=== PATIENT | female | born 1980 | race Two or more races ===

== ENCOUNTER 2017-04-24 09:40 | Emergency (ER) | payer SELFPAY ==
--- NOTE | 2017-04-24 09:55 | ER Document Report ---
ED Medical Screen (RME) - General Chief Complaint: Abdominal Pain Stated Complaint: ABDOMINAL PAIN Time Seen by Provider: 04/24/17 09:53 Notes: Patient presents complaining of cramping in arms and legs. Patient states this started 10 days ago when she started taking pre-oscar vitamins. She states that she is currently but does not know how far along she is. She states no ultrasound has been done. She states she has not had a menstrual cycle since 2014. She states she has no current medical problems. Patient states her only care has been 1 visit to the [facility]. She states she has never had any surgeries except for 1 section. Patient denies any vaginal bleeding. No problems with urine no problems with bowel movements. She denies any vomiting. She states she does have occasional abdominal cramping but does not have any cramping in her abdomen currently. TRAVEL OUTSIDE OF THE [place] IN LAST 30 DAYS: No - Related Data Allergies/Adverse Reactions: No Known Allergies Allergy (Verified 04/24/17 09:50) Past Medical History Renal/ Medical History: Denies: Hx Peritoneal Dialysis Physical Exam - Vital signs Vitals: Temp Pulse Resp BP Pulse Ox 98.7 F 102 H 18 112/65 99 04/24/17 09:45 04/24/17 09:45 04/24/17 09:45 04/24/17 09:45 04/24/17 09:45 Course - Vital Signs Vital signs: Temp Pulse Resp BP Pulse Ox 98.7 F 102 H 18 112/65 99 04/24/17 09:45 04/24/17 09:45 04/24/17 09:45 04/24/17 09:45 04/24/17 09:45
[2017-04-24 10:20] LABS: ABSOLUTE EOSINOPHILS # (AUTO) 0.1 10^3/uL (0.0-0.6); ABSOLUTE LYMPHOCYTES (AUTO) 1.9 10^3/uL (0.5-4.7); ABSOLUTE MONOCYTES (AUTO) 0.6 10^3/uL (0.1-1.4); BASOPHILS % (AUTO) 0.3 % (0-2); HEMATOCRIT 35.7 % (36.0-47.0); HEMOGLOBIN 11.7 g/dL (12.0-15.5); HGB HCT DIFFERENCE -0.6; LYMPHOCYTES % (AUTO) 18.2 % (13-45); MEAN CORPUSCULAR HGB CONC 32.8 g/dL (32.0-36.0); MEAN CORPUSCULAR VOLUME 82 fl (80-97); MONOCYTES % (AUTO) 5.8 % (3-13); RED BLOOD COUNT 4.35 10^6/uL (3.72-5.28); RED CELL DISTRIBUTION WIDTH 13.9 % (11.5-14.0); SEGMENTED NEUTROPHILS % (AUTO) 74.7 % (42-78); WHITE BLOOD COUNT 10.7 10^3/uL (4.0-10.5)
[2017-04-24 10:27] LABS: APPEARANCE,URINE SLIGHTLY-CLOUDY; BILIRUBIN,URINE NEGATIVE (NEGATIVE); GLUCOSE, URINE NEGATIVE (NEGATIVE); KETONES,URINE NEGATIVE (NEGATIVE); LEUKOCYTE ESTERASE,URINE TRACE (NEGATIVE); NITRITE,URINE NEGATIVE (NEGATIVE); PROTEIN,URINE NEGATIVE (NEGATIVE); URINE SPECIFIC GRAVITY 1.011; UROBILINOGEN,URINE NEGATIVE mg/dL (<2.0)
[2017-04-24 10:38] LABS: ALANINE AMINOTRANSFERASE 19 U/L (9-52); ALBUMIN 3.6 g/dL (3.5-5.0); ALKALINE PHOSPHATASE 89 U/L (38-126); ANION GAP 8 (5-19); ASPARTATE AMINO TRANSFERASE 15 U/L (14-36); BILIRUBIN,DIRECT 0.2 mg/dL (0.0-0.4); BILIRUBIN,TOTAL 0.4 mg/dL (0.2-1.3); BLOOD UREA NITROGEN 6 mg/dL (7-20); CALCIUM 8.7 mg/dL (8.4-10.2); CARBON DIOXIDE 26 mmol/L (22-30); CHLORIDE 104 mmol/L (98-107); CREATININE RESULT 0.51 mg/dL (0.52-1.25); GLUCOSE 83 mg/dL (75-110); POTASSIUM 4.2 mmol/L (3.6-5.0); SODIUM 138.2 mmol/L (137-145); TOTAL PROTEIN 6.6 g/dL (6.3-8.2)
--- NOTE | 2017-04-24 10:47 | ER Document Report ---
ED GI/ - General Chief Complaint: Abdominal Pain Stated Complaint: ABDOMINAL PAIN Time Seen by Provider: 04/24/17 09:53 Notes: Patient is here to be seen for pain that she says is in her left lower quadrant. Patient speaks only Luxembourgish and we are using Haleigh as land surveying manager. Patient tells me and the land surveying manager that her pain has been present for about 3 days, since Friday, but in triage, she told them 10 days. She has been on pills as her only medication and feels that her abdominal pain is related to those pills so she has not taken them since Friday. Pain comes and goes and is somewhat better than it was 3 or 4 days ago. Patient is possibly . She has been to the [facility] and had a positive test on April 14. She has not had vaginal bleeding prior to that since 2014 and were not certain why she has not had a period during these 2 years. She has not had any other associated symptoms. Specifically, denies nausea or vomiting or diarrhea, any UTI symptoms, fever. TRAVEL OUTSIDE OF THE [place] IN LAST 30 DAYS: No - Related Data Allergies/Adverse Reactions: No Known Allergies Allergy (Verified 04/24/17 09:50) Past Medical History - Social History Smoking Status: Never Smoker Chew tobacco use (# tins/day): No Frequency of alcohol use: None Drug Abuse: None Family History: Reviewed & Not Pertinent Patient has suicidal ideation: No Patient has homicidal ideation: No Past Surgical History: Reports: Hx Section Review of Systems - Review of Systems Notes: REVIEW OF SYSTEMS: CONSTITUTIONAL : Denies fever. EENT: Denies eye, ear, nose or mouth or throat pain or other symptoms. CARDIOVASCULAR: Denies chest pain. RESPIRATORY: Denies cough, chest congestion, or shortness of breath. GASTROINTESTINAL: See HPI regarding pain. Denies nausea, vomiting, or diarrhea. GENITOURINARY: Denies difficulty or painful urinating, urinary frequency, blood in urine. MUSCULOSKELETAL: Denies back or neck pain. Denies joint pain or swelling. SKIN: Denies rash or skin lesions. NEUROLOGICAL: Denies LOC or altered mental status. Denies headache. Denies sensory loss or motor deficits. ALL OTHER SYSTEMS REVIEWED AND NEGATIVE. Physical Exam - Vital signs Vitals: Temp Pulse Resp BP Pulse Ox 98.7 F 102 H 18 112/65 99 04/24/17 09:45 04/24/17 09:45 04/24/17 09:45 04/24/17 09:45 04/24/17 09:45 Interpretation: Normal - Notes Notes: PHYSICAL EXAMINATION: GENERAL: Well-appearing, in no acute distress. HEAD: Atraumatic, normocephalic. NECK: Normal range of motion, supple. LUNGS: Breath sounds clear and equal bilaterally. HEART: Regular rate and rhythm without murmurs. ABDOMEN: Soft, tender in the left lower quadrant, but no guarding and no rebound. No masses felt. No heartbeat noted. No tenderness in the right abdomen, i.e. right lower quadrant. BACK: No tenderness throughout entire back. No left flank pain. EXTREMITIES: Normal range of motion without pain. SKIN: Warm, dry, no rashes. Course - Re-evaluation Re-evalutation: 04/24/17 12:03 Patient's lab results were unremarkable. Ultrasound shows a 31 week gestation . Patient will be referred to L&D for further evaluation. - Vital Signs Vital signs: Temp Pulse Resp BP Pulse Ox 98.7 F 102 H 18 112/65 99 04/24/17 09:45 04/24/17 09:45 04/24/17 09:45 04/24/17 09:45 04/24/17 09:45 - Laboratory Result Diagrams: 04/24/17 10:05 04/24/17 10:05 Laboratory results interpreted by me: 04/24/17 04/24/17 04/24/17 10:05 10:05 10:05 WBC 10.7 H Hgb 11.7 L Hct 35.7 L BUN 6 L Creatinine 0.51 L Serum HCG, Qual POSITIVE H Ur Leukocyte Esterase 04/24/17 10:05 WBC Hgb Hct BUN Creatinine Serum HCG, Qual Ur Leukocyte Esterase TRACE H 04/24/17 12:02 Lab studies are all essentially normal except for a positive test. - Diagnostic Test Radiology reviewed: Image reviewed, Reports reviewed - Ultrasound shows a 31 week living, normal . Discharge - Discharge Clinical Impression: LLQ abdominal pain Qualifiers: Weeks of gestation: 31 weeks Qualified Code(s): Z3A.31 - 31 weeks gestation of Condition: Stable Disposition: HOME, SELF-CARE Additional Instructions: You are . care is best started as early in as possible. If you're unsure about continuing this , you should discuss this with your physician or with pediatrics physician at [facility]. You should take only medications approved by your physician. Acetaminophen can safely be taken for minor pains. As a rule, medication for chronic conditions such as asthma or seizures can safely be continued. You should discuss with the physician every medicine you take. Any regular exercise program can be continued. Talk to your physician, however, before engaging in competitive or demanding sports. Alcohol, smoking, and "street drugs" are dangerous to your baby. Cocaine is especially dangerous. Don't use any illicit drugs! FOLLOW-UP CARE: If you have been referred to a physician for follow-up care, call the physician s office for an appointment as you were instructed or within the next two days. If you experience worsening or a significant change in your symptoms, notify the physician immediately or return to the Emergency Department at any time for re-evaluation. You are being discharged to be evaluated further at L&D Print Language: Luxembourgish
--- NOTE | 2017-04-24 12:09 | RADIOLOGY REPORT (SQ) ---
EXAM DESCRIPTION: U/S OB 14+ TRNABD 1GES W/O DOP COMPLETED DATE/TIME: 04/24/2017 11:50 am REASON FOR STUDY: preg, unknown how far along. LLQ pain COMPARISON: None. TECHNIQUE: Static and Dynamic grayscale imaging performed of gravid uterus using transabdominal appr oach. Additional selected color Doppler and spectral images recorded. All stored on PACS. LIMITATIONS: None. FINDINGS: EGA: 31 weeks 2 days SOSA: 06/24/2017 EFW: 1553 +/- 230 g PERCENTILE: Not calculated RACH: Largest pocket 7.1 cm PLACENTA: Anterior PRESENTATION: Breech ANATOMY: HEART RATE: 143 beats per minute. FOUR CHAMBER HEART: Visualized. THREE VESSEL CORD: Yes. CORD INSERTION: Visualized. KIDNEYS AND BLADDER: Visualized. Appear normal. STOMACH: Visualized. Appears normal. SPINE: Normal as visualized. BRAIN AND LATERAL VENTRICLES: Visualized. Appear normal. OTHER: No other significant finding. MATERNAL ADNEXA: Maternal ovaries not visualized. CERVICAL LENGTH: 2.7 cm Closed. OTHER: No other significant finding. IMPRESSION: LIVING INTRAUTERINE . ESTIMATED GESTATIONAL AGE 31 weeks 2 days NO VISUALIZED ANOMALIES. Trimester of : Third trimester - 28 weeks to delivery. TECHNICAL DOCUMENTATION: JOB ID: [id number] [employer]- All Rights Reserved
[2017-04-24 12:35] VITALS: BP 117/71
== END 2017-04-24 12:35 | disposition home or self-care (01) ==
LOC: ER 09:40
DX: O26.893 Other specified pregnancy related conditions, third trimester (principal); R10.32 Left lower quadrant pain; Z3A.31 31 weeks gestation of pregnancy
CPT/HCPCS: 36415; 76805; 80053; 81001; 84702; 84703; 85025; 99284

== ENCOUNTER 2017-04-24 12:13 | Outpatient (CLI) | payer SELFPAY ==
[2017-04-24 13:19] LABS: APPEARANCE,URINE CLEAR; BILIRUBIN,URINE NEGATIVE (NEGATIVE); GLUCOSE, URINE NEGATIVE (NEGATIVE); KETONES,URINE NEGATIVE (NEGATIVE); LEUKOCYTE ESTERASE,URINE NEGATIVE (NEGATIVE); NITRITE,URINE NEGATIVE (NEGATIVE); PROTEIN,URINE NEGATIVE (NEGATIVE); URINE SPECIFIC GRAVITY 1.014; UROBILINOGEN,URINE NEGATIVE mg/dL (<2.0)
[2017-04-24 13:34] LABS: URINE BARBITURATES SCREEN NEGATIVE; URINE METHADONE SCREEN NEGATIVE; URINE OPIATES LOW NEGATIVE; URINE PHENCYCLIDINE SCREEN NEGATIVE
--- NOTE | 2017-04-24 13:49 | Non Stress Test Report ---
Non Stress Test Datetime Report Generated by CPN: 04/24/2017 13:49 INDICATION Indication for Study: Other Indication for Study (NST) Other: came for prescription of new vitamins VITAL SIGNS Temperature - NST: 98.5 Pulse - NST: 90 RESP - NST: 18 NBPSYS NST: 100 NBPDIA NST: 64 MONITORING Monitor Explained: Monitor Explained; Test Explained Time on Monitor: 04/24/2017 12:52 Time off Monitor: 04/24/2017 13:27 NST Duration: 35 NST INTERVENTIONS NST Interventions: Reposition Patient Physician Notified NST: Dr. Meek BABY A: [id number] BABY A Movement : Present Contraction Frequency : x1 FHR Baseline : 125 Accelerations : 15X15 Decelerations : None Variability : Moderate 6-25bpm NST Review: Meets Criteria for Reactive NST NST Review and Verified By : dbellavance rnc NST Results: Reactive NST REPORT Report Trigger: Send Report
== END 2017-04-24 13:35 | disposition home or self-care (01) ==
LOC: LC 12:13
PROVIDERS: ATTEND Student in an Organized Health Care Education/Training Program
DX: Z34.80 Encounter for supervision of other normal pregnancy, unspecified trimester (principal)
CPT/HCPCS: 80307; 81001

== ENCOUNTER 2017-06-29 00:46 | Inpatient (IN) | payer SELFPAY ==
[2017-06-29] MEDS ORDERED: MISOPROSTOL 0.2 MG TABLET ONE ×2 (01:10→02:50)
[2017-06-29] MEDS ORDERED: LIDOCAINE 1% INJ-PF (10 MG/ML) 30 ML SDV ONE (01:10)
[2017-06-29] MEDS ORDERED: OXYTOCIN/NORMAL SALINE 20 UNIT/1,000 ML RTUINJ ONE ×2 (01:10→01:42)
[2017-06-29] MEDS ORDERED: CEFAZOLIN 2 GM/D5W RTU 2 GM/50 ML RTUPB IV ONE (01:24)
[2017-06-29] MEDS ORDERED: CITRIC ACID/SODIUM CITRATE ORAL SOLN 15 ML UDCUP ONE (01:24)
[2017-06-29 01:39] LABS: ABSOLUTE EOSINOPHILS # (AUTO) 0.1 10^3/uL (0.0-0.6); ABSOLUTE MONOCYTES (AUTO) 0.6 10^3/uL (0.1-1.4); ABSOLUTE NEUT (AUTO) 8.7 10^3/uL (1.7-8.2); BASOPHILS % (AUTO) 0.2 % (0-2); EOSINOPHILS % (AUTO) 0.8 % (0-6); HEMATOCRIT 34.8 % (36.0-47.0); HEMOGLOBIN 11.6 g/dL (12.0-15.5); LYMPHOCYTES % (AUTO) 17.7 % (13-45); MEAN CORPUSCULAR HEMOGLOBIN 27.5 pg (27.0-33.4); MEAN CORPUSCULAR HGB CONC 33.4 g/dL (32.0-36.0); MEAN CORPUSCULAR VOLUME 82 fl (80-97); MONOCYTES % (AUTO) 5.4 % (3-13); RED BLOOD COUNT 4.23 10^6/uL (3.72-5.28); RED CELL DISTRIBUTION WIDTH 13.8 % (11.5-14.0); SEGMENTED NEUTROPHILS % (AUTO) 75.9 % (42-78); WHITE BLOOD COUNT 11.4 10^3/uL (4.0-10.5)
[2017-06-29] MEDS ORDERED: OXYTOCIN 10 UNIT/ML VIAL ONE (01:42)
[2017-06-29] MEDS ORDERED: ONDANSETRON HCL INJ/PF 4 MG/2 ML SDV ONE (01:42)
[2017-06-29] MEDS ORDERED: PROPOFOL INJ 200 MG/20 ML VIAL IV ONE (01:42)
[2017-06-29] MEDS ORDERED: PHENYLEPHRINE HCL INJ/PF 10 MG/1 ML SDV ONE (01:42)
[2017-06-29] MEDS ORDERED: MIDAZOLAM 2 MG/2 ML INJ ONE (01:42)
[2017-06-29] MEDS ORDERED: FENTANYL CITRATE INJ/PF 250 MCG/5 ML AMPULE ONE (01:42)
[2017-06-29] MEDS ORDERED: ACETAMINOPHEN 100 ML IV ONE (02:28)
[2017-06-29] MEDS ORDERED: MORPHINE SULFATE 10 MG/ML INJ ONE (02:46)
[2017-06-29] MEDS ORDERED: METHYLERGONOVINE MALEATE INJ/PF 0.2 MG/1 ML AMPULE ONE (02:51)
--- NOTE | 2017-06-29 04:18 | OPERATIVE REPORT E ---
Operative Report NAME: FRANK WOLF : 1980 AGE: 37Y DATE OF SURGERY: 06/29/2017 ROOM: LR200 PREOPERATIVE DIAGNOSIS: Intrauterine at 40+ weeks with history of , presenting in labor. POSTOPERATIVE DIAGNOSIS: Intrauterine at 40+ weeks with history of , presenting in labor. OPERATION PERFORMED: Repeat low transverse cervical section. SURGEON: LEROY PRUITT M.D. ANESTHESIA: General after failed attempted at spinal. ESTIMATED BLOOD LOSS: 600 mL. SPECIMEN TO PATHOLOGY: Placenta. FINDINGS: Mcneal male infant in breech presentation. 9 and 9. Short umbilical cord was noted. Weight 7 pounds 1 ounce or 3190 grams. Normal uterus, tubes and ovaries. Placenta was sent for pathology. DESCRIPTION OF PROCEDURE: After discussing risks, benefits, and alternatives of the procedure and obtaining informed consent, the patient was taken to the operating room where attempt spinal anesthesia was made. The patient is a known schizophrenic and she was unable to comply with positioning and holding still. She then underwent general anesthesia. She was then positioned in the dorsal supine position with a leftward tilt and prepped and draped in the standard fashion. General anesthesia was achieved. A Pfannenstiel skin incision was made and the abdomen was entered in layers in the standard fashion. A bladder flap was created with a sharp dissection. A low transverse cervical incision was made with the C-knife. The surgeon's hand was entered into the hysterotomy incision and breech elevated out the pelvis and delivered. It was delivered to the level of the knees. Each knee was flexed and delivered. The infant was delivered to the level of the upper chest. Each arm was swept over the anterior chest wall and delivered. The head was delivered by keeping it in flexion. The nasopharynx and oropharynx were bulb suctioned. The cord was clamped and cut. was handed to pediatrics who were present. Placenta was manually extracted. The uterus was exteriorized and cleared of all clots and debris. The hysterotomy incision was closed in 0 Monocryl in a running locked fashion. An area of oozing was oversewn midway across the uterus. Adequate hemostasis was then observed. Uterus, tubes and ovaries returned to the peritoneal cavity. The cavity was irrigated and hemostasis again assured. The peritoneum was closed with 2-0 Vicryl in a pursestring manner. The subfascial spaces were inspected and area of bleeding on the muscle in the pyramidalis region was noted. Hemostasis was obtained with 2-0 Vicryl. The rectus muscles were loosely reapproximated with 2-0 Vicryl. An area of oozing was noted along the left inferior epigastric and hemostasis achieved again with cautery. The fascia was closed with 1-0 Vicryl. The subcutaneous tissues were irrigated and hemostasis achieved with cautery. The skin was closed in a subcuticular fashion with 3-0 Vicryl. An OpSite dressing was applied. Cytotec was placed, 1000 mcg per rectum as it was felt that the patient would be unable to comply with fundal rubs postoperatively. She was extubated and taken to recovery in stable condition. All sponge, needle, lap, and instrument counts were correct x2. DICTATING PHYSICIAN: LEROY PRUITT M.D. [id number] PHY#: [id number] ID: [id number] JOB#: [id number] ACCT: [id number] cc:LEROY PRUITT M.D. >
[2017-06-29 04:41] LABS: APPEARANCE,URINE SLIGHTLY-CLOUDY; BILIRUBIN,URINE NEGATIVE (NEGATIVE); GLUCOSE, URINE NEGATIVE (NEGATIVE); KETONES,URINE NEGATIVE (NEGATIVE); LEUKOCYTE ESTERASE,URINE NEGATIVE (NEGATIVE); NITRITE,URINE NEGATIVE (NEGATIVE); PROTEIN,URINE 30 mg/dL (NEGATIVE); UROBILINOGEN,URINE NEGATIVE mg/dL (<2.0)
[2017-06-29 04:52] LABS: URINE BARBITURATES SCREEN NEGATIVE; URINE METHADONE SCREEN NEGATIVE; URINE PHENCYCLIDINE SCREEN NEGATIVE
[2017-06-29 04:53] LABS: ADD HIVPANEL? NO; HIV (1 AND 2) ANTIBODY NEGATIVE (NEGATIVE)
[2017-06-29 05:04] LABS: URINE OPIATES LOW UNCONFIRMED POSITIVE
--- NOTE | 2017-06-29 05:32 | Delivery Summary ---
Del Sum A-C Datetime Report Generated by CPN: 06/29/2017 05:32 DELIVERY PERSONNEL DELIVERY PERSONNEL: [id number] Delivery Doctor:: Hafsa Barry MD Anesthesiologist:: Will Soliz MD LOADER HELPER SORTING YARD:: Leander Smith CRNA Labor and Delivery Nurse:: Myesha Pineda RN Neonatal Nurse Practitioner:: ASHLEY Salinas Nursery Nurse:: Mary Martinez RN Aboriginal Education Teacher/BALE SEWER: Divine Marcelinor, POLICY DIRECTOR Aboriginal Education Teacher/BALE SEWER: Nicole Ramirez, ST MATERNAL INFORMATION Delivery Anesthesia: General Medications After Delivery: Pitocin Drip 20 Units/1000ml NSS Maternal Complications: Other Other Maternal Complications: Limited/late PNC LABOR SUMMARY EDC: 06/24/2017 00:00 No. Babies in Womb: 1 Attempted: No Labor Anesthesia: None LABOR INFORMATION Reason for Induction: Not Applicable Onset of Labor: 06/29/2017 00:53 Oxytocin: N/A Group B Beta Strep: Unknown Antibiotics # of Doses: 1 Antibiotics Time of Last Dose: 014 Name of Antibiotic Given: Ancef Steroids Given: None Reason Steroids Not Administered: Not Applicable MEMBRANES Membranes Rupture Method: Artificial Rupture of Membranes: 06/29/2017 01:15 Length of Rupture (hr): 1.10 Amniotic Fluid Color: Clear Amniotic Fluid Amount: Small Amniotic Fluid Odor: Normal STAGES OF LABOR Stage 3 hr: 0 Stage 3 min: 1 Total Time in Labor hr: 1 Total Time in Labor min: 29 VAGINAL DELIVERY Sponge Count Correct: N/A CSECTION DELIVERY Primary Indication: Repeat Elective Secondary Indication: Breech Presentation CSection Urgency: Non-Scheduled CSection Incidence: Repeat Labor: Labor Elective: Nonelective CSection Incision: Lower Uterine Transverse BABY A INFORMATION Delivery Date/Time: 06/29/2017 02:21 Method of Delivery: Born in Route : No : N/A Forceps: N/A Vacuum Extraction: N/A Shoulder Dystocia : No PRESENTATION/POSITION BABY A Presentation: Breech Cephalic Presentation: N/A Breech Presentation: Manny PLACENTA INFORMATION BABY A Placenta Delivery Time : 06/29/2017 02:22 Placenta Method of Delivery: Manual Removal Placenta Status: Delivered INFANT INFORMATION BABY A Gestational Age at Delivery: 40.5 Gestational Status: Full Term- 39- 40.6 Weeks Infant Outcome : Liveborn Infant Condition : Stable Infant Sex: Male IDENTIFICATION BABY A Infant Verification Date/Time: 06/29/2017 02:23 ID Band Number: [id number] Mother's Name Verified: Yes RN Verifying Infant: B. Ring RN Additional Verifying Personnel: R. Ertel BALE SEWER WEIGHT/LENGTH BABY A Birthweight (gm): 3190 Infant Weight (lb): 7 Infant Weight (oz): 1 Length (in): 19.00 Infant Length (cm): 48.26 CORD INFORMATION BABY A No. Cord Vessels: 3 Nuchal Cord : N/A Cord Blood Taken: Yes-For Eval (Mom's Blood Type - or O+) Suction: Mouth; Nose ASSESSMENT BABY A Infant Complications: Decreased Variability Physical Findings at Delivery: Within Normal Limits Physical Findings- Other: See full nursery assessment Infant Respirations: Appears Normal Skin to Skin: No Marketing Area Manager/ALS Called : Yes Infant Care By: Paresh Martinez RN Transferred To: [facility] BABY B INFORMATION : N/A
[2017-06-29] MEDS ORDERED: PROMETHAZINE HCL INJ 25 MG/1 ML VIAL IV PRN (05:39)
[2017-06-29] MEDS ORDERED: OXYTOCIN/NORMAL SALINE 20 UNIT/1,000 ML RTUINJ IV PRN (05:39)
[2017-06-29] MEDS ORDERED: SIMETHICONE 80 MG TAB.CHEW PO PRN (05:39)
[2017-06-29] MEDS ORDERED: ACETAMINOPHEN 325 MG TABLET PO PRN (05:39)
[2017-06-29] MEDS ORDERED: MEASLES,MUMPS&RUBELLA VACC/PF 0.5 ML VIAL SUBCUT PRN (05:39)
[2017-06-29] MEDS ORDERED: OXYCODONE-ACETAMINOPHEN 5-325 MG TABLET PO PRN (05:39)
[2017-06-29] MEDS ORDERED: DIPH/PERTUSS(ACELL)/TETANUS VAC/PF 0.5 ML SYR (>=10YO) IM PRN (05:39)
[2017-06-29] MEDS ORDERED: RINGERS SOLUTION,LACTATED 1,000 ML IV PRN (05:39)
[2017-06-29] MEDS ORDERED: HYDROMORPHONE HCL INJ/PF 2 MG/ML AMPULE IV PRN (05:39)
--- NOTE | 2017-06-29 06:13 | Admission Physical ---
Datetime Report Generated by CPN: 06/29/2017 06:13 CURRENT ADMISSION Chief Complaint: Uterine Contractions; Suspected Ruptured Membranes Admit Plan: Admit to Unit; Initiate Section Protocol ALLERGIES Medication Allergies: No Medication Allergies: No Known Allergies (06/29/2017) Medication Allergies: No Known Allergies (04/24/2017) Latex: No Latex Allergies Food Allergies: N/A Environmental Allergies: N/A OBSTETRICAL HISTORY EDC: 06/24/2017 00:00 : 2 Para: 1 Term: 0 : 0 SAB: 0 IAB: 0 Ectopic: 0 Livin Cesareans: 1 VBACs: 0 Multiple Births: 0 Gestational Diabetes: No Rh Sensitization: No Incompetent Cervix: No LUISA: No Infertility: No ART Treatment: No Uterine Anomaly: No IUGR: No Hx Previous C/S: Yes Macrosomia: No Hx Loss/Stillborn: No PIH: No Hx : No Placenta Previa/Abruption: No Depression/PP Depression: No PTL/PROM: No Post Hemorrhage: No Current Procedures: Ultrasound Obstetrical History Comments: 01/20/2015 section arrest of descent G2- Current, no PNC SEE RECORDS Alcohol: No Marijuana : No Cocaine: No Other Illicit Drugs: No Cigarettes: Never Smoker. [id number] MEDICAL HISTORY Diabetes: No Blood Transfusion: No Pulmonary Disease (Asthma, TB): No Breast Disease: No Hypertension: No Medical Resident Surgery: No Heart Disease: No Hosp/Surgery: Yes Autoimmune Disorder: No Anesthetic Complications: No Kidney Disease: No Abnormal Pap Smear: No Neuro/Epilepsy: No Psychiatric Disorders: No Other Medical Diseases: No Hepatitis/Liver Disease: No Significant Family History: No Varicosities/Phlebitis: No Trauma/Violence : No Thyroid Dysfunction: No Medical History Comments: 2014 INFECTIOUS HISTORY Gonorrhea: No Genital Herpes: No Chlamydia: No Tuberculosis: No Syphilis: No Hepatitis: No HIV/AIDS Exposure: No Rash or Viral Illness: No HPV: No Infectious History Comments: denies PHYSICAL EXAM General: Normal HEENT: Normal Neurologic: Normal Thyroid: Normal Heart: Normal Lungs: Normal Breast: Normal Back: Normal Abdomen: Normal Genitourinary Exam: Normal Extremities: Normal DTRs: Normal Pelvic Type: Adequate Physical Exam Comments: 7 cm dilated very uncomfortable-h/o ltcs for arrest of labor FETUS A EGA: 40.5 Monitoring: External US FHR Category: Category I Admit Comment: Discussed r/b/a of repeat [id number] btl. Discussed risks of if labor progresses too rapidly for . Check no PNC labs. PLANS FOR LABOR AND DELIVERY Labor and Delivery: None Pain Management: Spinal Feeding Preference: Both Benefit of Breast Feed Discussed: Yes Circumcision: No INFORMED CONSENT Signature: with User ID: [email or web address]
[2017-06-29] MEDS: PRENATAL VITAMIN W-O CA NO5/FE FUMARATE/FA CAPSULE PO SCH (10:37)
[2017-06-29] MEDS: CEFAZOLIN 1 GM/D5W RTU 1 GM/50 ML RTUPB IV SCH ×2 (10:38→18:00)
[2017-06-29] MEDS: DOCUSATE SODIUM 100 MG CAPSULE PO SCH ×2 (10:38→18:00)
[2017-06-29] MEDS ORDERED: SUCCINYLCHOLINE CHLORIDE INJ 200 MG/10 ML VIAL ONE (14:32)
[2017-06-29] MEDS: OXYCODONE-ACETAMINOPHEN 5-325 MG TABLET PO PRN ×2 (16:03→20:51)
[2017-06-30] MEDS: OXYCODONE-ACETAMINOPHEN 5-325 MG TABLET PO PRN (03:39)
[2017-06-30] MEDS: IBUPROFEN 800 MG TABLET PO SCH ×4 (05:10→23:11)
[2017-06-30 06:42] LABS: HEMATOCRIT 30.9 % (36.0-47.0); HEMOGLOBIN 10.2 g/dL (12.0-15.5); HGB HCT DIFFERENCE -0.3; MEAN CORPUSCULAR HEMOGLOBIN 27.2 pg (27.0-33.4); MEAN CORPUSCULAR HGB CONC 33.2 g/dL (32.0-36.0); MEAN CORPUSCULAR VOLUME 82 fl (80-97); RED BLOOD COUNT 3.76 10^6/uL (3.72-5.28); RED CELL DISTRIBUTION WIDTH 13.7 % (11.5-14.0); WHITE BLOOD COUNT 12.6 10^3/uL (4.0-10.5)
[2017-06-30] MEDS: PRENATAL VITAMIN W-O CA NO5/FE FUMARATE/FA CAPSULE PO SCH (09:47)
[2017-06-30] MEDS: DOCUSATE SODIUM 100 MG CAPSULE PO SCH ×2 (09:47→18:00)
--- NOTE | 2017-06-30 12:14 | PDOC PROGRESS REPORT ---
Subjective-OB Subjective: Post Delivery Day:1 37 year old G2 now P2 s/p RLTCS ppd1. Ambulating and voiding without difficulty. Denies any needs at this time Physical Exam (OB) Vital Signs: Temp Pulse Resp BP Pulse Ox 98.4 F 87 17 117/72 99 06/30/17 08:12 06/30/17 08:12 06/30/17 08:12 06/30/17 08:12 06/30/17 08:12 Intake & Output 06/29/17 06/30/17 07/01/17 06:59 06:59 06:59 Output Total 3600 Balance -3600 Weight 88 kg - General General Appearance: Appears well In distress: None - PIH/Pre-Eclampsia Clonus: Negative - Dressing Removed: No Incision: Dressing Closure Type: Sutures - Bilateral Tubal Ligation Dressing Removed: No - Lochia Lochia Amount: Scant < 10 ml Lochia Color: Rubra/Red - Abdomen Description: Tender, Soft Hernia Present: No Fundal Description: Firm, Midline Fundal Height: u/u - u/2 - Respiratory Respiratory Status: No respiratory distress - Extremities Upper extremity: Normal inspection Lower extremities: Normal inspection - Neurological Cognition: Normal Orientation: AAOx4 - Psychological Associated symptoms: Normal mood, Flat affect Objective-Diagnostic Laboratory: 06/30/17 06:20 06/30/17 06:20 WBC 12.6 H RBC 3.76 Hgb 10.2 L Hct 30.9 L MCV 82 MCH 27.2 MCHC 33.2 RDW 13.7 Plt Count 125 L Assessment and Plan(PN) - Assessment and Plan (1) Limited care Qualifiers: Trimester: unspecified trimester Qualified Code(s): O09.30 - Supervision of with insufficient care, unspecified trimester Is this a current diagnosis for this admission?: Yes Plan: delivered (2) Acute blood loss anemia Is this a current diagnosis for this admission?: Yes Plan: increase iron in diet and po supplementation with FeSO4 (3) Schizophrenia Qualifiers: Schizophrenia type: unspecified Qualified Code(s): F20.9 - Schizophrenia, unspecified Is this a current diagnosis for this admission?: Yes Plan: psych consult placed by admitting provider (4) delivery delivered Is this a current diagnosis for this admission?: Yes Plan: routine pp care - Time Spent with Patient Time with patient: 15-25 minutes - Disposition Anticipated Discharge: Home Within: within 24 hours
[2017-06-30 13:38] LABS: HEPATITIS C VIRUS AB <0.1 s/co ratio (0.0-0.9)
[2017-07-01] MEDS: IBUPROFEN 800 MG TABLET PO SCH (05:34)
[2017-07-01] MEDS: DOCUSATE SODIUM 100 MG CAPSULE PO SCH (09:36)
[2017-07-01] MEDS: PRENATAL VITAMIN W-O CA NO5/FE FUMARATE/FA CAPSULE PO SCH (09:36)
--- NOTE | 2017-07-01 09:48 | PDOC DISCHARGE SUMMARY ---
Final Diagnosis Discharge Date: 07/01/17 - Final Diagnosis (1) Acute blood loss anemia Is this a current diagnosis for this admission?: Yes (2) Limited care Is this a current diagnosis for this admission?: Yes (3) Schizophrenia Is this a current diagnosis for this admission?: Yes (4) Anemia Is this a current diagnosis for this admission?: Yes (5) delivery delivered Is this a current diagnosis for this admission?: Yes Discharge Data - Discharge Medication Home Medications: Vit/Iron Fum/Folic AC [ Tablet] 1 each PO DAILY 06/29/17 Gestational Age: 3190 Reason(s) for Admission: Onset of Labor, Group B Strep Positive Admission Note: limited care, breech, ruptured Procedures: NST Intrapartum Procedure(s): : Low Cervical, Transverse - [place] Data Baby 1 Male at 1 minute: 9 at 5 minutes: 9 Weight: 3190 kg Home with Mother: Yes Complications: No - Diagnosis Test Laboratory: Temp Pulse Resp BP Pulse Ox 97.7 F 78 16 116/74 100 07/01/17 03:51 07/01/17 03:51 07/01/17 03:51 07/01/17 03:51 07/01/17 03:51 06/29/17 06/29/17 06/30/17 01:24 04:27 06:20 RBC 4.23 3.76 Hgb 11.6 L 10.2 L Hct 34.8 L 30.9 L Urine Opiates Screen UNCONFIRMED POSITIVE - Discharge information/Instructions Discharge Activity: Activity As Tolerated, Pelvic Rest, No tub bath Discharge Diet: Regular Disposition: HOME, SELF-CARE Follow [facility]: [facility] in: 1, Weeks
[2017-07-01 11:22] VITALS: BP 110/70
== END 2017-07-01 12:30 | disposition home or self-care (01) | DRG 765 ==
LOC: LC 00:46 → LR 01:06 → 2S 05:45
PROVIDERS: ADMIT Specialist; ATTEND Specialist
PROC: 10D00Z1 Extraction of Products of Conception, Low, Open Approach (ICD-10-PCS; principal; 2017-06-29)
PROC: 4A1HXCZ Monitoring of Products of Conception, Cardiac Rate, External Approach (ICD-10-PCS; 2017-06-29)
DX: O65.5 Obstructed labor due to abnormality of maternal pelvic organs (principal); D62 Acute posthemorrhagic anemia; O99.354 Diseases of the nervous system complicating childbirth; O34.211 Maternal care for low transverse scar from previous cesarean delivery; O32.1XX0 Maternal care for breech presentation, not applicable or unspecified; O99.02 Anemia complicating childbirth; F20.9 Schizophrenia, unspecified; Z37.0 Single live birth; Z3A.40 40 weeks gestation of pregnancy
CPT/HCPCS: 1961; 36415; 80307; 80361; 81001; 85025; 85027; 86592; 86701; 86803; 86804; 86850; 86900; 86901; 87340; 88307; 94799; G0480; G6056; J0131; J0330; J0690; J2210; J2250; J2270; J2370; J2405; J2590; J2704; J3010; J3490